=== PATIENT | male | born 1965 | race American Indian/Alaskan Native ===

== ENCOUNTER 2016-12-06 06:04 | Day surgery (SDC) | payer OTHER ==
[2016-12-06] MEDS ORDERED: NACL 0.9% 1000 ML 1,000 ML ONE (07:22)
--- NOTE | 2016-12-06 07:29 | Anesthesia Day of Surgery ---
Anesthesia Day of Surgery - Day of Surgery Patient Examined: Yes Patient H&P Reviewed: Yes Patient is NPO: Yes
--- NOTE | 2016-12-06 07:29 | Anesthesia Consultation ---
Anesthesia Consult and Med Hx Date of service: 12/06/16 - Airway Anesthetic Teeth Evaluation: Good ROM Head & Neck: Adequate Mental/Hyoid Distance: Adequate Mallampati Class: Class II Intubation Access Assessment: Probably Good - Pre-Operative Health Status ASA Pre-Surgery Classification: ASA3 Proposed Anesthetic Plan: MAC - Pulmonary Hx Smoking: Yes - Cardiovascular System Hx Hypertension: Yes Hx Coronary Artery Disease: No (high cholesterol) - Endocrine Hx Non-Insulin Dependent Diabetes: Yes
[2016-12-06] MEDS ORDERED: NACL 0.9% 1000 ML 1,000 ML IV SCH (08:00)
[2016-12-06] MEDS ORDERED: DIPRIVAN 10 MG/ML IV ONE ×2 (08:01)
--- NOTE | 2016-12-06 08:42 | Short Stay Summary ---
Short Stay Documentation - Allergies and Medications Current Medications: Allergies No Known Allergies Allergy (Unverified 12/05/16 11:10) Home Medications Medication Instructions Recorded Confirmed Last Taken Type AtorvaSTATin PO DAILY 12/05/16 12/04/16 History Chlorthalidone 50 mg PO DAILY 12/05/16 12/05/16 12/04/16 History Losartan [Cozaar] PO DAILY 12/05/16 12/04/16 History amLODIPine DAILY 12/05/16 12/04/16 History metFORMIN 12/05/16 11/27/16 History Active Medications Sodium Chloride (Nacl 0.9% 1000 Ml) 1,000 mls @ 50 mls/hr IV DIRECT [place] Last Admin: 12/06/16 07:42 Dose: 50 mls/hr - Brief post op/procedure progress note Date of procedure: 12/06/16 Pre-op diagnosis: Colon cancer screening Post-op diagnosis: same (1. Poor prep 2. Internal hemorrhoids) Procedure: Colonoscopy Anesthesia: MAC Findings: as above Surgeon: DARIANA HERRERA Estimated blood loss: none Pathology: none Condition: stable - Disposition Condition at discharge: Stable Disposition: DC-01 TO HOME OR SELFCARE Short Stay Discharge Plan Activity: no restrictions Weight Bearing Status: Full Weight Bearing Diet: regular, low salt
[2016-12-06 09:08] VITALS: BP 138/84
--- NOTE | 2016-12-06 09:37 | Post Anesthesia Evaluation ---
- Post Anesthesia Evaluation Patient Participated: Yes Airway Patent: Yes Stable Respiratory Function: Yes Nausea/Vomiting: No Temp > 96.8F: Yes Pain Manageable: Yes Adequeate Hydration: Yes Anesthesia Complications: No
[2016-12-06] MEDS ORDERED: WATER FOR IRRIG STERILE IR ONE (11:06)
== END 2016-12-06 06:05 | disposition home or self-care (01) ==
LOC: GIO 06:04
PROVIDERS: ATTEND Internal Medicine Gastroenterology
DX: Z12.11 Encounter for screening for malignant neoplasm of colon (principal); D12.8 Benign neoplasm of rectum; K64.0 First degree hemorrhoids; E11.9 Type 2 diabetes mellitus without complications; I10 Essential (primary) hypertension; E78.00 Pure hypercholesterolemia, unspecified; F17.210 Nicotine dependence, cigarettes, uncomplicated; Z79.899 Other long term (current) drug therapy; Z79.84 Long term (current) use of oral hypoglycemic drugs
CPT/HCPCS: 45380; 88305; J2704; J7030